=== PATIENT | male | born 1965 | race Caucasian/White ===

== ENCOUNTER 2018-04-21 08:35 | Day surgery (SDC) | payer MEDICAID ==
[~2018-04-21] VITALS: Ht 177.8 cm; Wt 97.5 kg
[2018-04-21] MEDS ORDERED: MIDAZOLAM 2 MG/2 ML VIAL ONE (10:44)
[2018-04-21] MEDS ORDERED: fentaNYL 0.05 MG/ML VIAL ONE (10:44)
[2018-04-21] MEDS ORDERED: LIDOCAINE 2% 100 MG/5 ML UJET TP ONE (10:45)
[2018-04-21] MEDS ORDERED: MIDAZOLAM 2 MG/2 ML VIAL IVP ONE (15:20)
[2018-04-21] MEDS ORDERED: fentaNYL 0.05 MG/ML VIAL IVP ONE (15:20)
[2018-04-21] MEDS ORDERED: MIDAZOLAM 2 MG/2 ML VIAL IVP SCH (15:30)
[2018-04-21] MEDS ORDERED: fentaNYL 0.05 MG/ML VIAL IVP SCH (15:30)
== END 2018-04-21 12:45 | disposition home or self-care (01) ==
LOC: MDS 08:35 → MMU 08:35 → MDS 12:45
PROVIDERS: ATTEND Internal Medicine Gastroenterology
DX: D12.3 Benign neoplasm of transverse colon (principal); K44.9 Diaphragmatic hernia without obstruction or gangrene; K21.9 Gastro-esophageal reflux disease without esophagitis; I10 Essential (primary) hypertension; E66.9 Obesity, unspecified; Z68.30 Body mass index [BMI] 30.0-30.9, adult; Z98.890 Other specified postprocedural states
CPT/HCPCS: 36415; 43239; 45385; 86677; J2250; J3010